=== PATIENT | female | born 1930 | race Caucasian/White ===

== ENCOUNTER 2016-12-15 19:21 | Emergency (ER) | payer OTHER ==
[~2016-12-15] VITALS: Ht 152.4 cm; Wt 83.0 kg
[2016-12-15 19:40] VITALS: Ht 152.4 cm; Wt 83.0 kg
[2016-12-15] MEDS ORDERED: CEPH-443 PO (20:57)
[2016-12-15] MEDS ORDERED: ACET325T33 PO (20:58)
--- NOTE | 2016-12-15 21:02 | ERD ---
ER Documentation Chief Complaint Date/Time DATE: 12/15/16 TIME: 20:59 Chief Complaint pain/swelling right thumb, got punctured by fishbone yesterday HPI This is an 86-year-old female presents to the ER after a fishbone punctured her right thumb yesterday. Patient states that today her right thumb is red and swollen and hurts whenever she touches it. Patient denies any fevers or chills. She denies any numbness or tingling to the area. Patient denies any falls. ROS 12 point review of systems was done, all negative except per HPI. Medications Home Meds Active Scripts Acetaminophen* (Tylenol*) 325 Mg Tablet, 2 TAB PO Q8 Y for PAIN AND OR ELEVATED TEMP, #20 TAB Prov:HERBERT,LISETTE C 12/15/16 Cephalexin* (Keflex*) 500 Mg Capsule, 500 MG PO BID for 7 Days, CAP Prov:HERBERT,LISETTE C 12/15/16 Allergies Allergies: Coded Allergies: No Known Drug Allergies (Verified Allergy, Unknown, 12/15/16) PMhx/Soc History of Surgery: Yes (OVARIAN CYST REMOVAL, HYSTERECTOMY, ABD HERNIA) Anesthesia Reaction: No Hx Neurological Disorder: No Hx Respiratory Disorders: No Hx Cardiac Disorders: Yes (HTN, HIGH CHOLESTEROL) Hx Psychiatric Problems: No Hx Miscellaneous Medical Probl: Yes (ALSO BACK SURGERY, HEMORRHOIDECTOMY) Hx Alcohol Use: No Hx Substance Use: No Hx Tobacco Use: No Smoking Status: Never smoker Physical Exam Vitals Vital Signs Date Time Temp Pulse Resp B/P Pulse Ox O2 Delivery O2 Flow Rate FiO2 12/15/16 19:40 97.9 65 20 153/83 97 Physical Exam GENERAL: The patient is well developed and appropriate for usual state of health , in no apparent distress. HEENT: Atraumatic. CHEST: Clear to auscultation bilaterally. There are no rales, wheezes or rhonchi. HEART: Regular rate and rhythm. No murmurs, clicks, rubs or gallops. NEURO: Alert and oriented. SKIN: Right first digit is erythematous, swollen, tender to palpation to the volar side. There is one small puncture wound. No evidence of foreign body. Procedures/MDM This is an 86-year-old female that presents to the ER after she poked herself with a fishbone last night. Area does appear erythematous and warm to touch. Patient will be given Keflex for potential small skin infection. At this time do not believe there is any foreign bodies. Patient has full range of motion of her thumb she is neurovascularly intact, afebrile and extremely well- appearing. Patient needs to follow-up with her primary care doctor within 1-2 days or return to ER sooner if symptoms worsen. My medical decision making was shared with the patient she understands and agrees with plan. Departure Diagnosis: Primary Impression: Cellulitis Condition: Stable Patient Instructions: Cellulitis Additional Instructions: Call your primary care doctor TOMORROW for an appointment during the next 1-2 days.See the doctor sooner or return here if your condition worsens before your appointment time. LISETTE GODINEZ Dec 15, 2016 21:02
[2016-12-15 21:08] VITALS: BP 161/58; PULSE 61; RESP 18; TEMP 97.9
== END 2016-12-15 21:08 | disposition home or self-care (01) ==
LOC: FTE 19:21
DX: L03.011 Cellulitis of right finger (principal); I10 Essential (primary) hypertension
CPT/HCPCS: 99283

== ENCOUNTER 2017-01-04 19:02 | Emergency (ER) | payer MEDICARE, OTHER ==
[~2017-01-04] VITALS: Ht 152.4 cm; Wt 83.5 kg
[~2017-01-04 19:02] MED LIST: ACET325T33 PO; CEPH-443 PO
[2017-01-04 19:30] VITALS: Ht 152.4 cm; Wt 83.5 kg
[2017-01-04] MEDS ORDERED: HC30CR25 TOP (20:09)
[2017-01-04] MEDS ORDERED: TRAM50TA2 PO (20:10)
--- NOTE | 2017-01-04 20:16 | ERD ---
ER Documentation Chief Complaint Date/Time DATE: 01/04/17 TIME: 20:12 Chief Complaint Hemorrhoids HPI This is an 86-year-old female presents to the ER with rectal pain secondary to hemorrhoids. Patient has a history of hemorrhoids and had a hemorrhoidectomy in the past, however patient states her hemorrhoid came back. Since last night she has had pain, patient tried Preparation H and stool softeners however did not work. Patient denies any fever or chills. She does admit to some bright red blood per rectum with bowel movements, last week however this is now resolved. She denies any nausea or vomiting or diarrhea. She denies any weakness. ROS 12 point review of systems was done, all negative except per HPI. Medications Home Meds Active Scripts Tramadol HCl (Tramadol HCl) 50 Mg Tablet, 50 MG PO Q4 Y for PAIN, #20 TAB Prov:LISETTE GODINEZ C 01/04/17 Hydrocortisone* Topical (Hydrocortisone* Topical) 2.5%-28.3 Gm Cream..g., 1 APPLIC TOP BID, #1 TUB Prov:LISETTE GODINEZ C 01/04/17 Acetaminophen* (Tylenol*) 325 Mg Tablet, 2 TAB PO Q8 Y for PAIN AND OR ELEVATED TEMP, #20 TAB Prov:LISETTE GODINEZ C 12/15/16 Cephalexin* (Keflex*) 500 Mg Capsule, 500 MG PO BID for 7 Days, CAP Prov:HERBERTLISETTE C 12/15/16 Allergies Allergies: Coded Allergies: No Known Drug Allergies (Verified Allergy, Unknown, 12/15/16) PMhx/Soc History of Surgery: Yes (OVARIAN CYST REMOVAL, HYSTERECTOMY, ABD HERNIA) Anesthesia Reaction: No Hx Neurological Disorder: No Hx Respiratory Disorders: No Hx Cardiac Disorders: Yes (HTN, HIGH CHOLESTEROL) Hx Psychiatric Problems: No Hx Miscellaneous Medical Probl: Yes (ALSO BACK SURGERY, HEMORRHOIDECTOMY) Hx Alcohol Use: No Hx Substance Use: No Hx Tobacco Use: No Smoking Status: Never smoker Physical Exam Vitals Vital Signs Date Time Temp Pulse Resp B/P Pulse Ox O2 Delivery O2 Flow Rate FiO2 01/04/17 19:30 98.5 63 18 113/78 98 Physical Exam GENERAL: The patient is well developed and appropriate for usual state of health , in no apparent distress. HEENT: Atraumatic. CHEST: Clear to auscultation bilaterally. There are no rales, wheezes or rhonchi. HEART: Regular rate and rhythm. No murmurs, clicks, rubs or gallops. ABDOMEN: Soft, nontender and nondistended. Good bowel sounds. No rebound or guarding. No gross peritonitis. No gross organomegaly or masses. No Strauss sign or McBurney point tenderness. RECTAL: 2 external hemorrhoids, no evidence of thrombosed hemorrhoid. no gross bleeding. NEURO: Alert and oriented. SKIN: The skin is warm and dry. Procedures/MDM This is an 86-year-old female presents to the ER with a hemorrhoid. Patient did have hemorrhoids on physical examination there is no evidence of thrombosed hemorrhoid. Patient does not have any rectal bleeding at this time. Patient is extremely well-appearing and afebrile. She will be sent home with hydrocortisone and with tramadol. Patient stated she had stool softeners at home. Patient is to follow-up with her primary care doctor within 1-2 days return to ER sooner if symptoms worsen. My medical decision making was shared with the patient understands and agrees with plan. Departure Diagnosis: Primary Impression: Hemorrhoids Condition: Stable Patient Instructions: Hemorrhoids Additional Instructions: Call your primary care doctor TOMORROW for an appointment during the next 1-2 days.See the doctor sooner or return here if your condition worsens before your appointment time. LISETTE GODINEZ Jan 04, 2017 20:15
== END 2017-01-04 20:52 | disposition home or self-care (01) ==
LOC: FTE 19:02
DX: K64.4 Residual hemorrhoidal skin tags (principal); I10 Essential (primary) hypertension
CPT/HCPCS: 99283